=== PATIENT | female | born 1945 | race Two or more races ===

== ENCOUNTER 2018-10-26 07:32 | Outpatient (CLI) | payer OTHER | END 2018-10-26 07:47 | disposition home or self-care (01) | LOC: NUCLEAR 07:32 | DX: I20.9 Angina pectoris, unspecified (principal) | CPT/HCPCS: 78452; 93017; A9500; J0153 ==

== ENCOUNTER 2020-12-24 10:02 | Outpatient (CLI) | payer OTHER | END 2020-12-24 10:14 | disposition home or self-care (01) | LOC: RAD 10:02 | PROVIDERS: ATTEND Internal Medicine Cardiovascular Disease | DX: M25.511 Pain in right shoulder (principal); M71.50 Other bursitis, not elsewhere classified, unspecified site ==

== ENCOUNTER 2021-01-01 11:52 | Outpatient (CLI) | payer OTHER | END 2021-01-01 11:59 | disposition home or self-care (01) | LOC: MRI 11:52 | PROVIDERS: ATTEND Orthopaedic Surgery | DX: M75.121 Complete rotator cuff tear or rupture of right shoulder, not specified as traumatic (principal); M25.511 Pain in right shoulder | CPT/HCPCS: 73221 ==